=== PATIENT | female | born 1970 | race American Indian/Alaskan Native ===

== ENCOUNTER 2019-04-23 10:24 | Emergency (ER) | payer OTHER ==
--- NOTE | 2019-04-23 10:53 | Emergency Department Report ---
ED Chest Pain HPI - General Chief Complaint: Chest Pain Stated Complaint: CHEST PAIN Time Seen by Provider: 04/23/19 10:36 Source: patient Mode of arrival: Stretcher Limitations: No Limitations - History of Present Illness Initial Comments: 48-year-old female presents to the emergency department with a complaint of some lower midsternal chest and epigastric abdominal discomfort. 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 She then began having the midsternal chest and epigastric pain. She says that she had to have a bowel movement but the pain did not resolve after that. The patient went into the library where she was given a baby aspirin and EMS was called. The patient says that the symptoms improved in route and have since completely resolved. She denies any tobacco or illicit drug use. She has a past medical history of migraines, depression, restless leg syndrome, and some chronic musculoskeletal pains. Her primary care physician is a Dr. Mariama Celaya through the [facility] system. No recent travel or sick contacts at home. - Related Data Allergies Allergy/AdvReac Type Severity Reaction Status Date / Time No Known Allergies Allergy Verified 04/23/19 10:37 Heart Score - HEART Score History: Slightly suspicious EKG: Normal Age: 45-65 Risk factors: No known risk factors Troponin: < normal limit HEART Score: 1 - Critical Actions Critical Actions: 0-3 pts:0.9-1.7%risk of adverse cardiac event.Candidate for discharge ED Review of Systems ROS: Stated complaint: CHEST PAIN Other details as noted in HPI Comment: All other systems reviewed and negative Constitutional: diaphoresis. denies: chills, fever Eyes: denies: eye pain, vision change ENT: denies: ear pain, throat pain Respiratory: shortness of breath. denies: cough Cardiovascular: chest pain. denies: palpitations, edema Gastrointestinal: abdominal pain, nausea. denies: vomiting Genitourinary: denies: dysuria, discharge Musculoskeletal: denies: back pain, arthralgia Skin: denies: rash, lesions Neurological: denies: headache, weakness ED Past Medical Hx - Past Medical History Previous Medical History?: No - Surgical History Past Surgical History?: No - Social History Smoking Status: Never Smoker Substance Use Type: None ED Physical Exam - General Limitations: No Limitations - Other Other exam information: GENERAL: The patient is well-developed well-nourished. HENT: Normocephalic. Atraumatic. Patient has moist mucous membranes. EYES: Extraocular motions are intact. NECK: Supple. Trachea is midline. CHEST/LUNGS: Clear to auscultation. There is no respiratory distress noted. HEART/CARDIOVASCULAR: Regular. There is no tachycardia. There is no murmur. ABDOMEN: Abdomen is soft, nontender. Patient has normal bowel sounds. There is no abdominal distention. SKIN: Skin is warm and dry. NEURO: The patient is awake, alert, and oriented. The patient is cooperative. The patient has no focal neurologic deficits. Normal speech. MUSCULOSKELETAL: There is no tenderness or deformity. There is no limitation range of motion. There is no evidence of acute injury. ED Course Vital Signs 04/23/19 04/23/19 04/23/19 10:25 10:26 10:45 Temperature 98.0 F Pulse Rate 80 86 70 Respiratory 22 10 L 12 Rate Blood Pressure 114/67 108/68 Blood Pressure [Left] O2 Sat by Pulse 98 100 Oximetry 04/23/19 04/23/19 04/23/19 11:20 11:30 12:00 Temperature Pulse Rate 83 Respiratory 16 Rate Blood Pressure 99/47 114/66 Blood Pressure 122/73 [Left] O2 Sat by Pulse 98 100 99 Oximetry 04/23/19 04/23/19 04/23/19 12:30 13:00 13:30 Temperature Pulse Rate Respiratory Rate Blood Pressure 114/70 109/77 136/54 Blood Pressure [Left] O2 Sat by Pulse 98 94 99 Oximetry 04/23/19 04/23/19 04/23/19 14:00 14:28 14:30 Temperature Pulse Rate 70 Respiratory 16 Rate Blood Pressure 129/69 119/73 Blood Pressure [Left] O2 Sat by Pulse 99 92 Oximetry 04/23/19 04/23/19 04/23/19 15:00 15:30 16:00 Temperature Pulse Rate Respiratory Rate Blood Pressure 119/73 132/44 126/61 Blood Pressure [Left] O2 Sat by Pulse 98 100 100 Oximetry 04/23/19 04/23/19 04/23/19 16:30 17:16 17:18 Temperature 98.0 F Pulse Rate 72 Respiratory 10 L Rate Blood Pressure 115/60 115/60 122/79 Blood Pressure [Left] O2 Sat by Pulse 98 94 99 Oximetry 04/23/19 04/23/19 04/23/19 17:33 17:48 18:03 Temperature 98.8 F 98.4 F 98.6 F Pulse Rate 77 71 72 Respiratory 16 16 14 Rate Blood Pressure 128/74 111/76 Blood Pressure 116/72 [Left] O2 Sat by Pulse 99 100 98 Oximetry 04/23/19 18:33 Temperature 98.8 F Pulse Rate 71 Respiratory 14 Rate Blood Pressure 128/70 Blood Pressure [Left] O2 Sat by Pulse 99 Oximetry - Consultations Consultation #1: I spoke with a [facility] physician, Dr. Palma, who told me that the patient has not had a hemoglobin checked since 2015 and it was about 10 at that time. She was into the case presentation and agrees with the plan for a transfusion of 1 unit of blood for symptomatic anemia. At first she was going to try to arrange outpatient transfusion but I was notified that the transfusion center is "backed up" and we were asked and given permission to do the transfusion here. After transfusion the patient can be discharged home and [facility] will arrange for outpatient hematology follow-up. 04/23/19 14:39 LG score - Lg Score Age > 65: (0) No Aspirin use within the Past 7 Days: (1) Yes 3 or more CAD Risk Factors: (0) No 2 or more Angina events in past 24 hrs: (0) No Known CAD with more than 50% Stenosis: (0) No Elevated Cardiac Markers: (0) No ST Deviation Greater than 0.5mm: (0) No LG Score: 1 ED Medical Decision Making - Lab Data Result diagrams: 04/23/19 11:14 04/23/19 11:14 - EKG Data -: EKG Interpreted by Me EKG shows normal: sinus rhythm, axis, intervals (mild prolongation of CO interval), QRS complexes, ST-T waves Rate: normal - EKG Data When compared to previous EKG there are: previous EKG unavailable Interpretation: normal EKG (with very mild prolongation of CO interval) - Radiology Data Radiology results: image reviewed interpreted by me: Chest x-ray does not show any acute process. There are no pleural effusions, obvious pneumonia and there is no pneumothorax. Abdominal x-ray shows nonspecific nonobstructive bowel gas - Medical Decision Making This patient presented to the emergency department with some lower midsternal chest pain, epigastric pain, shortness of breath and lightheadedness. Symptoms improved on the way to the emergency department and had resolved by the time she got here. Her EKG did not show any ST elevation SD or dysrhythmia. Abdominal x-ray and chest x-ray did not show any acute processes. Labs were mostly unremarkable except for microcytic anemia with a hemoglobin of 7.5. At first, we did not have any previous labs from this patient to compare. I spoke with Jamil and one of the physicians at there transfer hub who was able to tell me that the last hemoglobin she had was in 2016 and it appears to have been progressively decreasing from 2015. It was normal at that time, down to about 10 in 2016, and now at 7.5. It is possible that some of the patient's symptoms are related to her symptomatically anemia. The rest of labs are unremarkable including a negative troponin. Her vital signs have been stable throughout her ED course. [facility] was unable to set up the patient for outpatient blood transfusion so we were given permission to transfuse 1 unit of packed red blood cells. The patient has been reevaluated multiple times throughout her ED course and is still asymptomatic and there was no reaction to the transfusion. The patient be discharged home and is being set up for a outpatient follow-up visit with primary care and hematology. - Differential Diagnosis symptomatic anemia, SD, dysrhythmia, cholelithiasis, pancreatitis Critical Care Time: No Critical care attestation.: If time is entered above; I have spent that time in minutes in the direct care of this critically ill patient, excluding procedure time. ED Disposition Clinical Impression: Symptomatic anemia, Epigastric abdominal pain Anemia Qualifiers: Anemia type: iron deficiency Iron deficiency anemia type: unspecified iron deficiency Qualified Code(s): D50.9 - Iron deficiency anemia, unspecified Chest pain Qualifiers: Chest pain type: unspecified Qualified Code(s): R07.9 - Chest pain, unspecified Disposition: DC-01 TO HOME OR SELFCARE Is pt being admited?: No Condition: Stable Instructions: Chest Pain (ED), Iron Rich Diet (ED), Abdominal Pain (ED), Anemia (ED) Additional Instructions: Please follow-up with a primary care physician through the [facility] system. They should be contacting you about an appointment with a automotive professional. Return to the closest emergency department immediately with any return of your chest pain, worsening of your symptoms, or with any acute distress. Referrals: JOSEE ASHER [Other] - 2-3 Days Time of Disposition: 14:51
--- NOTE | 2019-04-23 11:19 | XRay Report ---
CHEST 2 VIEWS INDICATION: Chest pain. COMPARISON: None FINDINGS: Support devices: None. Heart: Within normal limits. Lungs/pleura: No acute air space or interstitial disease. No pneumothorax. Additional findings: None. IMPRESSION: Normal chest x-ray ABDOMEN 2 VIEW(S) INDICATION / CLINICAL INFORMATION: Abdominal pain. COMPARISON: None available. FINDINGS: TUBES / LINES: None. BOWEL GAS PATTERN: No significant abnormality. FREE AIR / EXTRALUMINAL GAS: None seen. ADDITIONAL FINDINGS: No significant additional findings. IMPRESSION: Normal abdomen. Signer Name: Salvador Lincoln Jr, MD Signed: 04/23/2019 11:14 AM Workstation Name: [id number]
[2019-04-23] MEDS ORDERED: SODIUM CHLORIDE 0.9% 1000 ML 1,000 ML IV ONE (11:38)
[2019-04-23 11:39] LABS: Basophils % (Auto) 0.4 % (0.0-1.8); Eosinophils # (Auto) 0.3 K/mm3 (0.0-0.4); Eosinophils % (Auto) 3.2 % (0.0-4.3); Lymphocytes # (Auto) 1.2 K/mm3 (1.2-5.4); Lymphocytes % (Auto) 13.3 % (13.4-35.0); Mean Corpuscular HGB Conc 29 % (30-34); Monocytes # (Auto) 0.8 K/mm3 (0.0-0.8); Monocytes % (Auto) 8.9 % (0.0-7.3); Platelet Count 267 K/mm3 (140-440); Red Blood Count 3.87 M/mm3 (3.65-5.03); Red Cell Distribution Width 19.4 % (13.2-15.2)
[2019-04-23 11:40] LABS: Hematocrit 26.3 % (30.3-42.9); Hemoglobin 7.5 gm/dl (10.1-14.3); Mean Corpuscular Volume 68 fl (79-97)
[2019-04-23] MEDS ORDERED: SODIUM CHLORIDE 0.9% 1000 ML 1,000 ML ONE (11:41)
[2019-04-23 11:59] LABS: Alanine Aminotransferase 14 units/L (7-56); Albumin 3.8 g/dL (3.9-5); BUN/Creatinine Ratio 20; Blood Urea Nitrogen 16 mg/dL (7-17); Calcium 8.9 mg/dL (8.4-10.2); Hemolysis Index 3
[2019-04-23] MEDS ORDERED: SODIUM CHLORIDE 0.9% 500 ML 500 ML IV ONE (13:40)
[2019-04-23 18:48] VITALS: BP 128/70
== END 2019-04-23 18:57 | disposition home or self-care (01) ==
LOC: ED 10:24
DX: D64.9 Anemia, unspecified (principal); R10.13 Epigastric pain; R07.9 Chest pain, unspecified
CPT/HCPCS: 36415; 36430; 71046; 74019; 80053; 83690; 84484; 85025; 86850; 86900; 86901; 86920; 93005; 93010; 99284; J7030; J7040; P9016